=== PATIENT | female | born 1975 | race Caucasian/White ===

== ENCOUNTER 2017-05-13 07:14 | Emergency (ER) | payer BC ==
[~2017-05-13] VITALS: Ht 170.2 cm; Wt 70.0 kg
[2017-05-13 07:16] VITALS: BP 134/84; PULSE 92; RESP 16; TEMP 98.3; O2SAT 98
--- NOTE | 2017-05-13 07:41 | PD ---
HPI Chief Complaint: Skin Problem Time Seen by Provider: 07:41 Travel History International Travel<30 days: No Contact w/Intl Traveler<30days: No Traveled to known affect area: No History of Present Illness HPI 42 YO F with PMH of hypothyroid, benign tachycardia, anxiety presents to the ED for evaluation of 3 day history of pruritic rash. First noticed in the groins bilaterally. Patient treated with steroid cream which resolved her symptoms. States that she noticed that the rash had worsened to her abdomen yesterday and was treated with IM Steroids and PO Benadryl at Urgent Care. She was prescribed both medications, but has not taken them. On waking today she states that the rash is worsened, now spreading to the buttocks and back of the neck. She is currently traveling, staying with friends. She endorses new detergent use and recent bug bites while traveling through [place]. She denies SOB, feeling of closed throat, new medications. PFSH Past Medical History Cardiovascular Problems: Yes Social History Tobacco Use: No Allergies-Medications (Allergen,Severity, Reaction): Coded Allergies: No Known Allergies (Unverified , 05/13/17) Reported Meds & Prescriptions Reported Meds & Active Scripts Active Reported Ativan (Lorazepam) 0.5 Mg Tab 0.5 Mg PO Q6H PRN Trinessa (Norgestimate-Ethinyl Estradiol) 0.18/0.215/0.25 mg-35 Mcg Tab 1 Tab PO DAILY Magnesium Oxide 250 Mg Tab 250 Mg PO DIRECTED Aspirin 81 Mg Chew 81 Mg CHEW DAILY Synthroid (Levothyroxine Sodium) 88 Mcg Tab 88 Mcg PO DAILY Metoprolol Tartrate 25 Mg Tab 12.5 Mg PO BID Review of Systems Except as stated in HPI: all other systems reviewed are Neg Physical Exam Narrative GENERAL: Well-nourished, well-developed anxious white female in no acute distress. SKIN: Warm and dry. There is a blanching, erythematous plaque like rash distributed over the groin, abdomen, under the breasts, in the buttocks, in the posterior hairline. HEAD: Normocephalic. Atraumatic. EYES: No scleral icterus. No injection or drainage. PERRLA. EOMI. ENT: Pearly lowery tympanic membranes bilaterally. Nasal mucosa is moist. Oropharynx without erythema, edema or exudate. NECK: Supple, trachea midline. No JVD or lymphadenopathy. CARDIOVASCULAR: Regular rate and rhythm without murmurs, gallops, or rubs. 2+ DP and radial pulses bilaterally. RESPIRATORY: Breath sounds clear and equal bilaterally. No accessory muscle use. GASTROINTESTINAL: Abdomen soft, non-tender, nondistended. + Bowel sounds MUSCULOSKELETAL: No cyanosis, or edema. BACK: Nontender without obvious deformity. No CVA tenderness. Data Data Last Documented VS Vital Signs Date Time Temp Pulse Resp B/P Pulse Ox O2 Delivery O2 Flow Rate FiO2 05/13/17 07:53 88 18 05/13/17 07:16 98.3 134/84 98 Orders Iv Access Insert/Monitor (05/13/17 07:52) Diphenhydramine Inj (Benadryl Inj) (05/13/17 08:00) Methylprednisolone So Succ Inj (Solumedr (05/13/17 08:00) Sodium Chlor 0.9% 1000 Ml Inj (Ns 1000 M (05/13/17 07:52) Sodium Chloride 0.9% Flush (Ns Flush) (05/13/17 08:00) MDM Medical Decision Making Medical Screen Exam Complete: Yes Emergency Medical Condition: Yes Differential Diagnosis urticaria versus contact dermatitis versus allergic reaction versus other Narrative Course 42 YO F with PMH of hypothyroid, benign tachycardia, anxiety presents to the ED for evaluation of 3 day history of pruritic rash. First noticed in the groins bilaterally. Patient treated with steroid cream which resolved her symptoms. States that she noticed that the rash had worsened to her abdomen yesterday and was treated with IM Steroids and PO Benadryl at Urgent Care. She was prescribed both medications, but has not taken them. On waking today she states that the rash is worsened, now spreading to the buttocks and back of the neck. She lives in [place], is currently traveling, staying with friends. She endorses new detergent use and recent bug bites while traveling through [place]. She denies SOB, feeling of closed throat, new medications. Vitals reviewed. Physical exam reveals a blanching, erythematous, plaque-like rash distributed over the groin, abdomen, under the breast, in the buttock, the posterior hairline. ENT exam is unremarkable. CTA B. IV was established. Patient was administered 50 mg Benadryl, 125 mg prednisone, 1 L normal saline by IV. On recheck the patient reports improvement of pruritus and the rash is improved. I discussed the possible causes severe urticaria with the patient. She is instructed to treat symptomatically with Benadryl every 4-6 hours, use previously prescribed steroids beginning tomorrow, avoid hot showers, exposure to the sun, return for worsening symptoms. She indicated understanding of the instructions and is agreeable with the care plan. She is stable and discharged home. Diagnosis Primary Impression: Urticaria Referrals: Primary Care Physician Patient Instructions: General Instructions, Urticaria (ED) Additional Instructions: Rest, hydrate. Take prednisone 20 mg 3 times a day 5 days as prescribed. Begin tomorrow morning. 50mg Benadryl every 4-6 hours as needed for itch. Begin in 4 hours. Cool baths to avoid worsening of symptoms. Avoid sun exposure. Treat anxiety with Ativan as needed. Follow-up with your primary care provider. Return to the ED for worsening of symptoms or any urgent or emergent medical condition. Disposition: 01 DISCHARGE HOME Condition: Stable Gail Ballard May 13, 2017 07:41
[2017-05-13] MEDS ORDERED: SODIUM CHLOR 0.9% 1000 ML INJ 1,000 ML IV SCH (07:52)
[2017-05-13] MEDS ORDERED: TRINTAB7 PO (07:58)
[2017-05-13] MEDS ORDERED: MAGN250T11 PO (07:58)
[2017-05-13] MEDS ORDERED: ASPI81CH CHEW (07:58)
[2017-05-13] MEDS ORDERED: METO25TA3 PO (07:58)
[2017-05-13] MEDS ORDERED: SYNT88TA PO (07:58)
[2017-05-13] MEDS ORDERED: LORA-392 PO (07:59)
[2017-05-13] MEDS ORDERED: methylPREDNISolone SOD SUCC 125 MG/2 ML VIAL IVP ONE (08:00)
[2017-05-13] MEDS ORDERED: diphenhydrAMINE HCL 50 MG/ML VIAL IVP ONE (08:00)
[2017-05-13] MEDS ORDERED: SODIUM CHLORIDE 0.9% FLUSH 10 ML FLUSH IV FLUSH PRN (08:00)
== END 2017-05-13 09:30 | disposition home or self-care (01) ==
LOC: NEPD 07:14
DX: L50.9 Urticaria, unspecified (principal); E03.9 Hypothyroidism, unspecified; R00.0 Tachycardia, unspecified; Z86.59 Personal history of other mental and behavioral disorders; Z86.79 Personal history of other diseases of the circulatory system
CPT/HCPCS: 96361; 96374; 96375; 99284; J1200; J2930; J7030